=== PATIENT | male | born 1990 | race African-American/Black ===

== ENCOUNTER 2016-11-21 14:21 | Emergency (ER) | payer OTHER ==
[~2016-11-21] VITALS: Ht 193 cm; Wt 79.0 kg
[2016-11-21 14:23] VITALS: TEMP 37; Ht 193 cm; Wt 79.0 kg
--- NOTE | 2016-11-21 14:55 | EMERGENCY ROOM VISIT NOTE ---
History First contact with patient: 14:29 Chief Complaint: ANKLE PAIN Stated Complaint: ANKLE TORE History of Present Illness The patient is a 26 year old male who presents to the Emergency Room with complaints of pain on the back of his right leg Patient was playing basketball and upon landing from a jump shot, he felt a pop at the back of his right leg that felt as if someone had stepped on the back of his ankle. He claims to have landed flat on his feet, albeit more heavily on the right side than the left, with his knees in front of his ankles (relative dorsiflexion of ankle). He has been unable to weight bear since. No skin changes or lacerations. He immediately made his way to the ER thereafter. Currently, he is feeling pressure/throbbing in ball of foot, as well as tenderness from his right calcaneus to mid leg. The pain is getting worse, from 5/10 initially to 8/10 currently. No radiation of pain, no numbness or tingling. Ice is not helping. Denies previous injury to joint. No recent fluoroquinolone usage. Denies LOC, headache, visual changes, neck pain, chest pain, breathing difficulties, nausea, vomiting, abdominal pain, back pain, other extremity pain , numbness, weakness, open wounds, active bleeding, or other complaints. Review of Systems See HPI for pertinent positives and negatives. A total of ten systems were reviewed and were otherwise negative. Past Medical/Surgical History Medical Problems: (1) Depression (2) Hernia (3) Hernia, inguinal (4) self-mutilation Social History Smoking Status: Never Smoker Alcohol Use: occasionally Drug Use: none Marital Status: single Housing Status: other Occupation Status: other Allergies Coded Allergies: No Known Allergies (Unverified , 02/14/14) Physical Exam Vital Signs Date Time Temp Pulse Resp B/P Pulse Ox O2 Delivery O2 Flow Rate FiO2 11/21/16 14:23 37.0 111 20 122/73 97 Room Air Physical Exam PHYSICAL EXAM: Vital Signs reviewed, see Nurse's notes. GENERAL: Awake, alert, well appearing, no distress HEAD: Normocephalic, atraumatic. No austin sign. No raccoon eyes. EYES: Normal conjunctiva. PERRL. EARS: External ears normal. OROPHARYNX: Lips, tongue, and mucosa unremarkable. No erythema or exudate. NECK: Supple. No nuchal rigidity. Full ROM. No posterior midline tenderness. RESPIRATORY: CTA bilaterally CARDIAC: Regular rate, normal rhythm. ABDOMEN: Inspection reveals no abnormalities. Soft, non distended. No tenderness to palpation. No hernias. BACK: No midline step offs or tenderness to palpation. Unremarkable. SKIN: Normal. LYMPH: No adenopathy. MUSCULOSKELETAL: Mild warmth and fullness in right calf compared to left. No skin changes seen. Full passive and active ROM in the knees and ankles bilaterally. The right ankle has reduced strength and increased pain on plantarflexion, inversion and eversion compared to left. Upon lying supine, compression of the left calf causes plantarflexion, while right calf compression does not elicit any movement. NEURO: GCS 15. Normal sensorium. No sensory or motor deficits noted. Medical Decision & Procedures Medical Decision 26 year old male presented with an injury to the right ankle/calf. This occurred 1 hour ago. The patient complains of pain over the posterior aspect of the right lower leg and pain is rated 8/10. No treatment was done prior to arrival The patient was evaluated in room D7. A complete history and physical exam was performed. Differential diagnosis includes soft tissue injury, fracture, dislocation, sprain, ligamentous injury, as well as other pathologies. Patient declined analgesia for symptom relief. History and clinical exam (absence of plantarflexion with calf compression) consistent with Achilles injury Patient from [place] and states he will seek orthopedics care when he returns home. 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 Patient understands and agreeable with care plan. Patient discharged home well. Impression Primary Impression: Injury of right Achilles tendon Departure Information Dispostion Home / Self-Care Condition FAIR Referrals No Doctor, Assigned (PCP) Patient Instructions A Signature Page, [employer] Additional Instructions You were seen today after trauma to your right ankle. Clinical history and physical examination is consistent with an Achilles tendon injury. As such we recommend getting in touch with orthopedics today to schedule an appointment as soon as possible. We understand that you are from [place] and will seek care with orthopedics once you have returned. In the interim, we advise for conservative management: - Please use crutches to support your ability to ambulate. - For pain control, you can use the following [id number] medicines: a) Regular strength (325mg/tab) Tylenol (acetaminophen) 2 tabs every 4-6 hours as needed. Do not exceed 12 tablets in a 24 hour period. Avoid taking more than 4 grams (4000 mg) of Tylenol per day. This includes any other sources of acetaminophen you may take on a regular basis. b) Regular strength (200 mg/tab) Advil (ibuprofen) 1-2 tabs every 4-6 hours as needed. Do not exceed a dose of 3200 mg per day. You have been examined and treated today on an emergency basis only. This is not a substitute for, or an effort to provide, complete comprehensive medical care. It is impossible to recognize and treat all injuries or illnesses in a single emergency department visit. It is therefore important that you make a follow up with your physician for close monitoring. Return to ER for worsening symptoms or if you develop fever, vomiting, or any other concerning symptoms such as leg deformity, skin colour changes, uncontrolled pain despite medication, weakness or paralysis. Work Instructions Return To Work: 1 week
--- NOTE | 2016-11-21 14:55 | EMERGENCY ROOM VISIT NOTE ---
ED Visit Note First contact with patient: 14:29 Patient evaluated with resident. He is noted to sustain an Achilles injury while playing basketball. In absence of plantar flexion with palpation of the calf. History and clinical exam consistent with Achilles injury. Patient from [place] and states he can follow-up with orthopedics when he returns home. 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 He declined prescription analgesia and was advised to take Tylenol Motrin every 6 hours as needed.
[2016-11-21 15:16] VITALS: BP 146/87; PULSE 96; O2SAT 98
== END 2016-11-21 15:19 | disposition home or self-care (01) ==
LOC: C.EDB 14:23 → C.EDD 15:19
DX: S86.001A Unspecified injury of right Achilles tendon, initial encounter (principal); F32.9 Major depressive disorder, single episode, unspecified; X50.9XXA Other and unspecified overexertion or strenuous movements or postures, initial encounter; Y93.67 Activity, basketball